=== PATIENT | female | born 1970 | race Caucasian/White ===

== ENCOUNTER 2020-12-12 19:47 | Emergency (ER) | payer BC ==
[~2020-12-12] VITALS: Ht 170.2 cm; Wt 123.8 kg
[~2020-12-12 19:47] MED LIST: ALBU90I INH; ALBU90OI6 INH; AZIT500 PO; CEFD300 PO; CHOL10002 PO; Duoneb 2.5-0.5 M3 ML INH; FLUSAL5005 IH; HYDCHL25 PO; LEVFLO500 PO; MONT10T PO; MULVITMIND PO; NAC600 MG PO; NICO21TP TOP; PRED10 PO; PRED20 PO; Prednisone20 MG PO; Robaxin500 MG PO; THEO100ERB PO; THEO300ERB PO
[2020-12-12 20:19] LABS: BASOPHILS ABSOLUTE AUTO 0.04 K/mm3 (0.00-0.23); BASOPHILS PERCENT AUTO 0 % (0-2); EOSINOPHILS PERCENT AUTO 3 % (0-6); Hematocrit 41.5 % (33.0-51.0); Hemoglobin 13.5 g/dL (11.5-16.0); IMMATURE GRAN ABSOLUTE AUTO 0.06 K/mm3 (0.00-0.10); IMMATURE GRAN PERCENT AUTO 1 % (0-1); LYMPHOCYTES ABSOLUTE AUTO 2.95 K/mm3 (0.84-5.20); LYMPHOCYTES PERCENT AUTO 30 % (21-46); MONOCYTES PERCENT AUTO 5 % (4-13); Mean Corpuscular HGB 27.2 pg (26.0-34.0); Mean Corpuscular HGB Conc 32.5 g/dL (31.5-36.5); Mean Corpuscular Volume 84 fL (80-100); Mean Platelet Volume 11.1 fL (9.1-12.4); NEUTROPHILS ABSOLUTE AUTO 6.02 K/mm3 (1.96-9.15); NEUTROPHILS PERCENT AUTO 61 % (41-73); Platelet Count 188 K/mm3 (150-400); RDW Coefficient Variation 15.2 % (11.7-14.2); Red Blood Cell Count 4.96 M/mm3 (3.80-5.20); White Blood Cell Count 9.87 K/mm3 (4.00-11.30)
[2020-12-12 20:44] LABS: Alanine Aminotransfer (ALT/SGP 17 U/L (12-78); Albumin, Blood 3.3 g/dL (3.4-5.0); Alk Phos 85 U/L (50-136); Anion Gap 4 mmol/L (6-16); Aspartate Aminotrans (AST/SGOT 10 U/L (12-37); Bilirubin, Total 0.4 mg/dL (0.1-1.0); Blood Urea Nitrogen 15 mg/dL (8-24); CO2, Blood 24 mmol/L (21-32); Calcium, Blood 9.3 mg/dL (8.5-10.1); Chloride, Blood 112 mmol/L (98-108); Globulin, Blood 3.4 g/dL (2.2-4.0); Glomerular Filtration Rate >60 (60-); Glucose, Blood 182 mg/dL (70-99); Potassium, Blood 3.9 mmol/L (3.5-5.5); Sodium, Blood 140 mmol/L (136-145); Total Protein, Blood 6.7 g/dL (6.4-8.2); Troponin I <0.015 ng/mL (0.000-0.040)
[2020-12-12] MEDS ORDERED: Prednisone50 MG PO (22:49)
[2020-12-12] MEDS ORDERED: Vibramycin100 MG PO (22:49)
== END 2020-12-12 22:57 | disposition home or self-care (01) ==
LOC: ER 19:47
PROVIDERS: Physician Assistant
DX: J45.901 Unspecified asthma with (acute) exacerbation (principal); E11.9 Type 2 diabetes mellitus without complications; J44.9 Chronic obstructive pulmonary disease, unspecified; Z88.0 Allergy status to penicillin; Z79.899 Other long term (current) drug therapy
CPT/HCPCS: 36415; 71046; 80053; 84484; 85025; 93005; 93010; 99284-25; J7512

== ENCOUNTER 2021-02-11 01:31 | Emergency (ER) | payer BC ==
[~2021-02-11] VITALS: Ht 170.2 cm; Wt 107.0 kg
[~2021-02-11 01:31] MED LIST changes: +Prednisone50 MG PO; +Vibramycin100 MG PO
[2021-02-11] MEDS ORDERED: ASPI325 PO (01:44)
[2021-02-11 02:04] LABS: BASOPHILS ABSOLUTE AUTO 0.06 K/mm3 (0.00-0.23); BASOPHILS PERCENT AUTO 1 % (0-2); EOSINOPHILS ABSOLUTE AUTO 0.42 K/mm3 (0.00-0.68); EOSINOPHILS PERCENT AUTO 4 % (0-6); Hematocrit 41.9 % (33.0-51.0); Hemoglobin 13.7 g/dL (11.5-16.0); IMMATURE GRAN ABSOLUTE AUTO 0.05 K/mm3 (0.00-0.10); IMMATURE GRAN PERCENT AUTO 1 % (0-1); LYMPHOCYTES ABSOLUTE AUTO 3.02 K/mm3 (0.84-5.20); LYMPHOCYTES PERCENT AUTO 31 % (21-46); MONOCYTES PERCENT AUTO 6 % (4-13); Mean Corpuscular HGB 27.3 pg (26.0-34.0); Mean Corpuscular HGB Conc 32.7 g/dL (31.5-36.5); Mean Corpuscular Volume 84 fL (80-100); Mean Platelet Volume 10.6 fL (9.1-12.4); NEUTROPHILS ABSOLUTE AUTO 5.61 K/mm3 (1.96-9.15); NEUTROPHILS PERCENT AUTO 58 % (41-73); Platelet Count 179 K/mm3 (150-400); RDW Coefficient Variation 15.1 % (11.7-14.2); Red Blood Cell Count 5.01 M/mm3 (3.80-5.20); White Blood Cell Count 9.76 K/mm3 (4.00-11.30)
[2021-02-11 02:28] LABS: Alanine Aminotransfer (ALT/SGP 20 U/L (12-78); Albumin, Blood 3.4 g/dL (3.4-5.0); Alk Phos 86 U/L (50-136); Anion Gap 4 mmol/L (6-16); Aspartate Aminotrans (AST/SGOT 10 U/L (12-37); Bilirubin, Total 0.4 mg/dL (0.1-1.0); Blood Urea Nitrogen 11 mg/dL (8-24); Bun/Creatinine Ratio 17.9 (12.0-20.0); CO2, Blood 25 mmol/L (21-32); Calcium, Blood 9.2 mg/dL (8.5-10.1); Chloride, Blood 109 mmol/L (98-108); Creatinine, Blood 0.62 mg/dL (0.40-1.00); Free Thyroxine 1.12 ng/dL (0.70-1.60); Globulin, Blood 3.4 g/dL (2.2-4.0); Glomerular Filtration Rate >60 (60-); Glucose, Blood 167 mg/dL (70-99); Potassium, Blood 3.7 mmol/L (3.5-5.5); Sodium, Blood 138 mmol/L (136-145); Total Protein, Blood 6.8 g/dL (6.4-8.2); Troponin I <0.015 ng/mL (0.000-0.040)
[2021-02-11] MEDS ORDERED: METO25ER PO (03:01)
[2021-02-11] MEDS ORDERED: XARELTO20 MG PO (03:01)
== END 2021-02-11 03:20 | disposition home or self-care (01) ==
LOC: ER 01:31
PROVIDERS: Emergency Medicine
DX: I48.0 Paroxysmal atrial fibrillation (principal); E11.9 Type 2 diabetes mellitus without complications; F17.200 Nicotine dependence, unspecified, uncomplicated; Z88.0 Allergy status to penicillin; Z88.1 Allergy status to other antibiotic agents; Z79.82 Long term (current) use of aspirin; Z79.899 Other long term (current) drug therapy
CPT/HCPCS: 36415; 71045; 80053; 84439; 84443; 84484; 85025; 93005; 93010; 99285-25

== ENCOUNTER 2023-01-09 01:13 | Emergency (ER) | payer OTHER ==
[~2023-01-09 01:13] MED LIST changes: +ALBU90OI INH; +ASPI325 PO; +DILT120 PO; +DILT30 PO; +ELIQUIS5 M2 PO; +ELIQUIS5 MG PO; +IPRAT-ALBUT 0.5-3 ML NEB; +METO25ER PO; +SYMBICORT 160-4.6 GM INH; +XARELTO20 MG PO
[2023-01-09 08:26] LABS: Albumin, Blood 3.8 g/dL (3.4-5.0); Albumin/Globulin Ratio 1.1 (0.8-1.8); Bilirubin, Total 0.5 mg/dL (0.1-1.0); Bun/Creatinine Ratio 17.2 (12.0-20.0); Calcium, Blood 9.7 mg/dL (8.5-10.1); Creatinine, Blood 0.64 mg/dL (0.40-1.00); Globulin, Blood 3.4 g/dL (2.2-4.0); Potassium, Blood 4.1 mmol/L (3.5-5.5); Total Protein, Blood 7.2 g/dL (6.4-8.2)
[2023-01-09 09:27] LABS: BASOPHILS ABSOLUTE AUTO 0.05 K/mm3 (0.00-0.23); BASOPHILS PERCENT AUTO 1 % (0-2); EOSINOPHILS ABSOLUTE AUTO 0.33 K/mm3 (0.00-0.68); EOSINOPHILS PERCENT AUTO 3 % (0-6); Hematocrit 46.5 % (33.0-51.0); Hemoglobin 15.2 g/dL (11.5-16.0); IMMATURE GRAN ABSOLUTE AUTO 0.04 K/mm3 (0.00-0.10); IMMATURE GRAN PERCENT AUTO 0 % (0-1); LYMPHOCYTES ABSOLUTE AUTO 2.94 K/mm3 (0.84-5.20); LYMPHOCYTES PERCENT AUTO 29 % (21-46); MONOCYTES ABSOLUTE AUTO 0.53 K/mm3 (0.16-1.47); MONOCYTES PERCENT AUTO 5 % (4-13); Mean Corpuscular HGB 27.3 pg (26.0-34.0); Mean Corpuscular HGB Conc 32.7 g/dL (31.5-36.5); Mean Corpuscular Volume 84 fL (80-100); Mean Platelet Volume 10.5 fL (9.1-12.4); NEUTROPHILS ABSOLUTE AUTO 6.32 K/mm3 (1.96-9.15); NEUTROPHILS PERCENT AUTO 62 % (41-73); Platelet Count 217 K/mm3 (150-400); RDW Coefficient Variation 15.2 % (11.7-14.2); RDW Standard Deviation 46.5 fL (35.1-46.3); Red Blood Cell Count 5.57 M/mm3 (3.80-5.20); White Blood Cell Count 10.21 K/mm3 (4.00-11.30)
== END 2023-01-09 06:25 | disposition home or self-care (01) ==
LOC: ER 01:13
PROVIDERS: Student in an Organized Health Care Education/Training Program
DX: I48.91 Unspecified atrial fibrillation (principal); R07.9 Chest pain, unspecified; F17.200 Nicotine dependence, unspecified, uncomplicated
CPT/HCPCS: 80053; 83735; 84484; 85025; 93005; 93010

== ENCOUNTER 2023-05-16 17:19 | Emergency (ER) | payer OTHER ==
[~2023-05-16] VITALS: Ht 170.2 cm; Wt 117.9 kg
[2023-05-16 17:48] LABS: BASOPHILS ABSOLUTE AUTO 0.05 K/mm3 (0.00-0.23); BASOPHILS PERCENT AUTO 0 % (0-2); EOSINOPHILS ABSOLUTE AUTO 0.28 K/mm3 (0.00-0.68); EOSINOPHILS PERCENT AUTO 2 % (0-6); Hematocrit 43.2 % (33.0-51.0); Hemoglobin 14.2 g/dL (11.5-16.0); IMMATURE GRAN PERCENT AUTO 1 % (0-1); LYMPHOCYTES ABSOLUTE AUTO 3.68 K/mm3 (0.84-5.20); LYMPHOCYTES PERCENT AUTO 31 % (21-46); MONOCYTES ABSOLUTE AUTO 0.58 K/mm3 (0.16-1.47); MONOCYTES PERCENT AUTO 5 % (4-13); Mean Corpuscular HGB Conc 32.9 g/dL (31.5-36.5); Mean Corpuscular Volume 85 fL (80-100); Mean Platelet Volume 10.1 fL (9.1-12.4); NEUTROPHILS ABSOLUTE AUTO 7.23 K/mm3 (1.96-9.15); NEUTROPHILS PERCENT AUTO 61 % (41-73); Platelet Count 174 K/mm3 (150-400); RDW Coefficient Variation 15.1 % (11.7-14.2); RDW Standard Deviation 46.7 fL (35.1-46.3); Red Blood Cell Count 5.07 M/mm3 (3.80-5.20); White Blood Cell Count 11.92 K/mm3 (4.00-11.30)
[2023-05-16] MEDS ORDERED: SYMBICORT 16010.2 GM INH (17:54)
[2023-05-16] MEDS ORDERED: LOSA25 (17:54)
[2023-05-16] MEDS ORDERED: METO50 (17:55)
[2023-05-16] MEDS ORDERED: BREYNA 160-4.10.3 GM INH (17:55)
[2023-05-16] MEDS ORDERED: LISI5 PO (17:55)
[2023-05-16 18:20] LABS: Albumin, Blood 3.3 g/dL (3.4-5.0); Bilirubin, Total 0.5 mg/dL (0.1-1.0); Bun/Creatinine Ratio 19.7 (12.0-20.0); Calcium, Blood 9.4 mg/dL (8.5-10.1); Creatinine, Blood 0.76 mg/dL (0.40-1.00); Globulin, Blood 3.3 g/dL (2.2-4.0); Potassium, Blood 4.2 mmol/L (3.5-5.5); Total Protein, Blood 6.6 g/dL (6.4-8.2)
[2023-05-16 18:50] LABS: Source, Urine Clean Catch
[2023-05-16 19:07] LABS: Appearance, Urine Clear (Clear); Bilirubin, Urine Neg (Neg); Blood, Urine 2+ (Neg); Color, Urine Yellow (P-Yellow); Glucose Qualitative, Urine Neg (Neg); Ketones, Urine Neg (Neg); Leukocyte Esterase, Urine 2+ (Neg); Nitrite, Urine Neg (Neg); Protein, Urine Neg (Neg); Urobilinogen, Urine NORM (Normal); pH, Urine 6.5 (5.0-8.0)
[2023-05-16 19:16] LABS: Bacteria Few /hpf; Red Blood Cells, Urine 0-2 /hpf (0-2); Squamous Epithelial Cells Few /hpf (Few)
[2023-05-16 19:58] VITALS: BP 125/70
== END 2023-05-16 20:39 | disposition home or self-care (01) ==
LOC: ER 17:19
PROVIDERS: Emergency Medicine; Student in an Organized Health Care Education/Training Program
DX: I48.91 Unspecified atrial fibrillation (principal); E11.9 Type 2 diabetes mellitus without complications; F17.200 Nicotine dependence, unspecified, uncomplicated; J44.9 Chronic obstructive pulmonary disease, unspecified
CPT/HCPCS: 71260; 80053; 81001; 83880; 84484; 85025; 93005; 93010; 99285-25; Q9967

== ENCOUNTER 2023-06-24 21:26 | Emergency (ER) | payer OTHER ==
[~2023-06-24] VITALS: Ht 170.2 cm; Wt 117.9 kg
[~2023-06-24 21:26] MED LIST changes: +BREYNA 160-4.10.3 GM INH; +LISI5 PO; +LOSA25; +METO50; +SYMBICORT 16010.2 GM INH
[2023-06-24 21:55] LABS: Source, Urine Clean Catch
[2023-06-24 21:56] LABS: BASOPHILS ABSOLUTE AUTO 0.04 K/mm3 (0.00-0.23); BASOPHILS PERCENT AUTO 0 % (0-2); EOSINOPHILS ABSOLUTE AUTO 0.04 K/mm3 (0.00-0.68); EOSINOPHILS PERCENT AUTO 0 % (0-6); Hematocrit 42.5 % (33.0-51.0); IMMATURE GRAN ABSOLUTE AUTO 0.28 K/mm3 (0.00-0.10); IMMATURE GRAN PERCENT AUTO 2 % (0-1); LYMPHOCYTES PERCENT AUTO 16 % (21-46); MONOCYTES ABSOLUTE AUTO 0.65 K/mm3 (0.16-1.47); MONOCYTES PERCENT AUTO 5 % (4-13); Mean Corpuscular HGB Conc 32.9 g/dL (31.5-36.5); Mean Corpuscular Volume 85 fL (80-100); Mean Platelet Volume 10.6 fL (9.1-12.4); NEUTROPHILS ABSOLUTE AUTO 10.45 K/mm3 (1.96-9.15); NEUTROPHILS PERCENT AUTO 77 % (41-73); Platelet Count 222 K/mm3 (150-400); RDW Coefficient Variation 15.9 % (11.7-14.2); RDW Standard Deviation 49.1 fL (35.1-46.3); White Blood Cell Count 13.66 K/mm3 (4.00-11.30)
[2023-06-24 21:57] LABS: Bilirubin, Urine Neg (Neg); Blood, Urine 2+ (Neg); Glucose Qualitative, Urine Neg (Neg); Ketones, Urine Neg (Neg); Leukocyte Esterase, Urine 1+ (Neg); Nitrite, Urine Neg (Neg); Protein, Urine Neg (Neg); Urobilinogen, Urine NORM (Normal)
[2023-06-24 21:59] LABS: Appearance, Urine Clear (Clear); Color, Urine Yellow (P-Yellow)
[2023-06-24 22:06] LABS: Bacteria Few /hpf; Red Blood Cells, Urine 0-2 /hpf (0-2); Squamous Epithelial Cells Not Seen /hpf (Few)
[2023-06-24 22:14] LABS: Albumin, Blood 3.6 g/dL (3.4-5.0); Bilirubin, Total 0.5 mg/dL (0.1-1.0); Bun/Creatinine Ratio 34.5 (12.0-20.0); Calcium, Blood 9.6 mg/dL (8.5-10.1); Creatinine, Blood 0.67 mg/dL (0.40-1.00); Globulin, Blood 3.7 g/dL (2.2-4.0); Potassium, Blood 4.3 mmol/L (3.5-5.5); Total Protein, Blood 7.3 g/dL (6.4-8.2)
[2023-06-24 23:34] LABS: Magnesium, Blood 2.3 mg/dL (1.6-2.4); Phosphorus, Blood 2.8 mg/dL (2.5-4.9)
[2023-06-25 01:15] VITALS: BP 124/90
[2023-06-25] MEDS ORDERED: CEPH500 PO (01:17)
== END 2023-06-25 01:24 | disposition home or self-care (01) ==
LOC: ER 21:26
PROVIDERS: Emergency Medicine
DX: R07.89 Other chest pain (principal); N39.0 Urinary tract infection, site not specified; I89.0 Lymphedema, not elsewhere classified; E66.9 Obesity, unspecified; F17.200 Nicotine dependence, unspecified, uncomplicated; J44.9 Chronic obstructive pulmonary disease, unspecified; E11.9 Type 2 diabetes mellitus without complications; I48.91 Unspecified atrial fibrillation
CPT/HCPCS: 71046; 80053; 81001; 82947; 83735; 83880; 84100; 84484; 85025; 85379; 87086; 93005; 93010; 96365; 99285-25; J0696

== ENCOUNTER 2023-09-13 01:27 | Inpatient (IN) | payer OTHER ==
[~2023-09-13] VITALS: Ht 170.2 cm; Wt 115.3 kg
[~2023-09-13 01:27] MED LIST changes: +CEPH500 PO
[2023-09-13 02:39] LABS: BASOPHILS ABSOLUTE AUTO 0.06 K/mm3 (0.00-0.23); BASOPHILS PERCENT AUTO 0 % (0-2); EOSINOPHILS ABSOLUTE AUTO 0.03 K/mm3 (0.00-0.68); EOSINOPHILS PERCENT AUTO 0 % (0-6); Hematocrit 45.6 % (33.0-51.0); Hemoglobin 14.9 g/dL (11.5-16.0); IMMATURE GRAN ABSOLUTE AUTO 0.23 K/mm3 (0.00-0.10); IMMATURE GRAN PERCENT AUTO 1 % (0-1); LYMPHOCYTES ABSOLUTE AUTO 1.66 K/mm3 (0.84-5.20); LYMPHOCYTES PERCENT AUTO 9 % (21-46); MONOCYTES ABSOLUTE AUTO 1.02 K/mm3 (0.16-1.47); MONOCYTES PERCENT AUTO 5 % (4-13); Mean Corpuscular HGB 28.2 pg (26.0-34.0); Mean Corpuscular HGB Conc 32.7 g/dL (31.5-36.5); Mean Corpuscular Volume 86 fL (80-100); Mean Platelet Volume 11.2 fL (9.1-12.4); NEUTROPHILS ABSOLUTE AUTO 16.12 K/mm3 (1.96-9.15); NEUTROPHILS PERCENT AUTO 84 % (41-73); Platelet Count 190 K/mm3 (150-400); RDW Coefficient Variation 15.8 % (11.7-14.2); Red Blood Cell Count 5.29 M/mm3 (3.80-5.20); White Blood Cell Count 19.12 K/mm3 (4.00-11.30)
[2023-09-13 03:17] LABS: Albumin, Blood 3.7 g/dL (3.4-5.0); Albumin/Globulin Ratio 1.1 (0.8-1.8); Bilirubin, Total 0.7 mg/dL (0.1-1.0); Bun/Creatinine Ratio 22.6 (12.0-20.0); Calcium, Blood 9.5 mg/dL (8.5-10.1); Creatinine, Blood 0.53 mg/dL (0.40-1.00); Globulin, Blood 3.5 g/dL (2.2-4.0); Phosphorus, Blood 2.1 mg/dL (2.5-4.9); Potassium, Blood 3.7 mmol/L (3.5-5.5); Thyroid Stimulating Hormone 0.712 uIU/mL (0.360-4.800); Total Protein, Blood 7.2 g/dL (6.4-8.2)
[2023-09-13 04:15] LABS: Influenza A, PCR NEGATIVE (NEGATIVE); Influenza B, PCR NEGATIVE (NEGATIVE); Resp Syncytial Virus, PCR NEGATIVE (NEGATIVE); SARS-Cov-2 (COVID-19) PCR, MMC NEGATIVE (NEGATIVE)
[2023-09-13 05:27] LABS: Base Excess Venous 2.2 mmol/L; Bicarbonate Venous 26.2 mmol/L (24.0-30.0); pH Blood Venous 7.44 (7.34-7.37)
[2023-09-13] MEDS ORDERED: LOSARTAN-HCTZ1 EAC5 PO (06:40)
[2023-09-13] MEDS ORDERED: METOPROLOL SUCC25 MG PO (06:41)
[2023-09-13 14:06] VITALS: BP 125/98
--- NOTE | 2023-09-13 14:43 | NUR ---
ADMISSION: PT ARRIVED TO PCU 20 @1330 VIA GURNEY. PT ALERT AND ORIENTED X3, ABLE TO TELL THIS RN NAME, , AND LOCATION. STRENGTH EQUAL BILATERALLY. PT ANXIOUS, STATING "I CANT BREATHE." ATTEMPTING TO PULL AT LINES AND OXYGEN TUBING. BED ALARM ON FOR SAFETY. MEEDS FREQUENT REDIRECTION. BP STABLE, HR AFIB 140'S, DILT GTT @15MG/HR. SPO2 >96% ON 6L NC, PT RA AT BASELINE. LUNG SOUNDS COARSE WITH WHEEZES THROUGHOUT. RESP 22-24. AFEBRILE. ABD SOFT, NON TENDER, BOWEL SOUNDS +. PULSES STRONG AND EQUAL THROUGHOUT. +2 EDEMA NOTED IN BLE. MD NOTIFIED OF PT HR AND ANXIETY. BED IN LOW, CALL LIGHT IN REACH.
[2023-09-13 15:06] VITALS: BP 110/74
--- NOTE | 2023-09-13 16:01 | NUR ---
UPDATE: PT CONVERTED TO SINUS RHYTHM @1601.
--- NOTE | 2023-09-13 17:12 | NUR ---
SHIFT SUMMARY: NO ACUTE CHANGES SINCE ADMISSION. PT REMAINS ANXIOUS, MEDICATED PER EMAR. CONTINUING TO REFUSE BIPAP. HR REMAINS SR 80'S. VSS. BED IN LOW, CALL LIGHT IN REACH, WILL REPORT TO ONCOMING RN.
[2023-09-13 19:22] VITALS: BP 142/82
[2023-09-13 23:38] VITALS: BP 144/95
[2023-09-14 04:12] VITALS: BP 126/78
[2023-09-14 06:22] LABS: BASOPHILS ABSOLUTE AUTO 0.04 K/mm3 (0.00-0.23); BASOPHILS PERCENT AUTO 0 % (0-2); EOSINOPHILS PERCENT AUTO 0 % (0-6); Hematocrit 47.5 % (33.0-51.0); Hemoglobin 15.5 g/dL (11.5-16.0); IMMATURE GRAN ABSOLUTE AUTO 0.17 K/mm3 (0.00-0.10); IMMATURE GRAN PERCENT AUTO 1 % (0-1); LYMPHOCYTES ABSOLUTE AUTO 1.06 K/mm3 (0.84-5.20); LYMPHOCYTES PERCENT AUTO 9 % (21-46); MONOCYTES ABSOLUTE AUTO 0.18 K/mm3 (0.16-1.47); MONOCYTES PERCENT AUTO 2 % (4-13); Mean Corpuscular HGB 28.4 pg (26.0-34.0); Mean Corpuscular HGB Conc 32.6 g/dL (31.5-36.5); Mean Corpuscular Volume 87 fL (80-100); NEUTROPHILS ABSOLUTE AUTO 10.36 K/mm3 (1.96-9.15); NEUTROPHILS PERCENT AUTO 88 % (41-73); Platelet Count 192 K/mm3 (150-400); RDW Coefficient Variation 15.7 % (11.7-14.2); RDW Standard Deviation 49.9 fL (35.1-46.3); Red Blood Cell Count 5.46 M/mm3 (3.80-5.20); White Blood Cell Count 11.81 K/mm3 (4.00-11.30)
[2023-09-14 06:37] LABS: Albumin, Blood 3.4 g/dL (3.4-5.0); Albumin/Globulin Ratio 0.8 (0.8-1.8); Bilirubin, Total 0.9 mg/dL (0.1-1.0); Bun/Creatinine Ratio 32.3 (12.0-20.0); Creatinine, Blood 0.59 mg/dL (0.40-1.00); Magnesium, Blood 2.7 mg/dL (1.6-2.4); Potassium, Blood 4.6 mmol/L (3.5-5.5); Total Protein, Blood 7.4 g/dL (6.4-8.2)
--- NOTE | 2023-09-14 07:28 | NUR ---
SHIFT SUMMARY NO ACUTE EVENTS T/O NIGHT. RESIDENT CALLED IN PM D/T CBG OF 418. ORDER TO INCREASE HUMALOG TO HSS. VSS. SR. ON 5L NC. PT A/O X 3. MORE AWAKE THIS AM. PT IMPULSIVE AT TIMES AND BED ALARM IN PLACE. USES BSC WITH ONE PERSON ASSIST. BEDSIDE REPORT GIVEN. CALL LIGHT IN REACH.
[2023-09-14 08:10] VITALS: BP 130/79
[2023-09-14 12:43] VITALS: BP 132/80
[2023-09-14 16:12] VITALS: BP 119/67
--- NOTE | 2023-09-14 16:38 | NUR ---
UPDATE PT BLOOD SUGARS GRADUALLY INCREASED THROUGHOUT SHIFT, COVERAGE WITH HUMALOG HIGH SLIDING SCALE PER ORDERS. SUGARS CONTINUED TO INCREASE, MD MADE AWARE. PT TO RECIEVE GLARGINE THIS EVENING, MD INSTRUCTED RN TO KEEP REGIMEN IS FOR NOW AND PT WILL RECIEVE FIRST DOSE OF LONG ACTING. PT TO BE UPDATED. PT EXPRESSED CONCERN ABOUT POTASSIUM LEVELS BEING LOW DUE TO RECIEVING LASIX. PT MADE AWARE OF POTASSIUM LEVEL FROM MORNING LABS, PT COMFORTABLE WITH THE LEVEL, SEE CHART.
--- NOTE | 2023-09-14 18:55 | NUR ---
SIFT SUMMARY PT A/OX4 AND COOPERATIVE OF CARE. PT ABLE TO EXPRESS NEEDS AND CALLS APPROPIATELY. PT EXPRESSED SOME CONCERN OF BLOOD SUGAR LEVELS INCREASING, BELIEVES HER PREVIOUS BOUT FOR COVID CAUSED HER BLOODSUGAR TO RISE. MD AWARE OF BLOOD SUGAR LEVELS. PT REPORTED SOB [place] TIMES DURING SHIFT AND REQUESTED MULTIPKLE BREATHING TX'S. PT REPORTS LITTLE RELIEF. OTHER VSS THROUGHOUT SHIFT. PT O2 TITRATED TO 3L NC, TOLERATING WELL. PT INDEPENDENT IN ROOM. PT UPPER DENTURES REPORTED MISSING DURING MORNING ROUNDING, DENTURED FOUND IN ED AND RETURNED TO PT. PT ANXIOUS ABOUT MEDS AND LAB LEVELS.
[2023-09-14 20:13] VITALS: BP 136/72
[2023-09-14 22:44] VITALS: BP 135/83
[2023-09-15 03:04] VITALS: BP 131/74
[2023-09-15 04:16] LABS: Base Excess Venous -1.6 mmol/L; Bicarbonate Venous 22.4 mmol/L (24.0-30.0); PCO2 Venous 40.5 mmHg (38-42); pH Blood Venous 7.38 (7.34-7.37)
[2023-09-15 04:20] LABS: BASOPHILS ABSOLUTE AUTO 0.04 K/mm3 (0.00-0.23); BASOPHILS PERCENT AUTO 0 % (0-2); EOSINOPHILS PERCENT AUTO 0 % (0-6); Hematocrit 45.4 % (33.0-51.0); Hemoglobin 14.5 g/dL (11.5-16.0); IMMATURE GRAN ABSOLUTE AUTO 0.15 K/mm3 (0.00-0.10); IMMATURE GRAN PERCENT AUTO 1 % (0-1); LYMPHOCYTES ABSOLUTE AUTO 0.64 K/mm3 (0.84-5.20); LYMPHOCYTES PERCENT AUTO 4 % (21-46); MONOCYTES ABSOLUTE AUTO 0.55 K/mm3 (0.16-1.47); MONOCYTES PERCENT AUTO 3 % (4-13); Mean Corpuscular HGB 28.2 pg (26.0-34.0); Mean Corpuscular HGB Conc 31.9 g/dL (31.5-36.5); Mean Corpuscular Volume 88 fL (80-100); Mean Platelet Volume 11.3 fL (9.1-12.4); NEUTROPHILS PERCENT AUTO 93 % (41-73); Platelet Count 199 K/mm3 (150-400); RDW Coefficient Variation 15.4 % (11.7-14.2); RDW Standard Deviation 50.1 fL (35.1-46.3); Red Blood Cell Count 5.14 M/mm3 (3.80-5.20); White Blood Cell Count 18.08 K/mm3 (4.00-11.30)
[2023-09-15 04:42] LABS: Bun/Creatinine Ratio 40.2 (12.0-20.0); Calcium, Blood 9.9 mg/dL (8.5-10.1); Creatinine, Blood 0.65 mg/dL (0.40-1.00); Potassium, Blood 4.3 mmol/L (3.5-5.5)
--- NOTE | 2023-09-15 06:17 | NUR ---
MARKETING BUDGET ANALYST SUMMARY PT HAS REMAINED ALERT AND ORIENTED THIS SHIFT COMMUNICATING APPROPRIATELY W STAFF. PT MAINTAINED SPO2 >90% ON 4L NC BUT REQUIRED MULTIPLE BREATHING TREATMENTS FOR SOB/WHEEZING THIS SHIFT. PT DID BECOME ORTHOPNEIC WHILE SLEEPING FLAT THIS SHIFT AWAKING VERY SOB AND PANICKED. PT'S MONITOR SHOWING SR 70'S-80'S THIS SHIFT. PT'S GLUCOSE RISING THIS SHIFT DESPITE 2100 INSULIN COVERAGE W HUMALOG AND SEMGLEE SO PROVIDER CONTACTED THIS AM WHO GAVE ORDER FOR ADDITIONAL 10 UNITS HUMALOG. WILL REPORT TO ONCOMING RN.
[2023-09-15 07:39] VITALS: BP 115/62
[2023-09-15 15:52] VITALS: BP 137/63
[2023-09-15 16:44] LABS: Influenza A Negative (NEGATIVE); Influenza B Negative (NEGATIVE)
[2023-09-15 16:50] LABS: SARS-Cov-2 (COVID-19) PCR, MMC NEGATIVE (NEGATIVE)
--- NOTE | 2023-09-15 17:03 | NUR ---
Shift Summary Pt alert, oriented x4; anxious but cooperative with care. Pt resting on side of bed for majority of shift, pt up with sba to bathroom. Pt reports significant sob with ambulation; on 4-6l while up; spo2 >90% on 4l o2 via nc at rest; pt requiring multiple breathing treatment t/o shifts; pt reportsing blood in sputums, states has been happening since admission MD aware, placed new order. Pt denies pain, chest pain/pressure, nausea, dizziness and lightheadedness and numb/tingling. Tele sinus 80's, bp stable. Edema noted to ble +2 pitting; pt states its better then when she was admitted. Abd soft, nontneder +bt t/o. Other vss. No other acute changes noted. Will continue to monitor.
[2023-09-15 17:11] VITALS: BP 164/71
--- NOTE | 2023-09-15 18:48 | NUR ---
RN TO RN REPORT RECIEVED FROM ALLISON BECKHAM AT PCU. PATIENT TRANSFERED TO UNIT AT 1705. WHEEZING AND SHORTNESS OF BREATH NOTED TO ALL LOBES. SHE DECLINES BREATHING TREATMENT AT THIS TIME. RECOVERED QUICKLY TO 94% ON 4LPM.
[2023-09-15 20:42] VITALS: BP 123/54
--- NOTE | 2023-09-15 22:18 | NUR ---
PT HS BLOOD SUGAR WAS 365, DR COTO CALLED AND INFORMED. 6 UNITS OF HUMALOG AND 30 UNITS OF GLARGINE ADMINISTERED. PT COMPLAINS OF A COUGH, CODEINE COUGH SYRUP ORDERED AND ADMINISTERED.
--- NOTE | 2023-09-16 04:17 | NUR ---
SENIOR SOUS CHEF SUMMARY PT A&OX4 AND ANSWERS QUESTIONS APPROPRIATELY. PT REQUIRED MULTIPLE BREATHING TREATMENTS THROUGHOUT THE NIGHT DUE TO TACHYPNEA AND SOB. PT O2 SATURATION LEVELS DESAT DURING AMBULATION, O2 INCREASED DURING ACTIVITY. PT O2 SATS RETURNED TO ABOVE 90% AFTER RETURNING TO REST. PT RECEIVED CODEINE COUGH SYRUP AROUND 2200. PT REPORTED 2400 ML DURING VOIDING DUE TO PT EMPTYING URINE INTO TOILET FROM HAT AFTER VOIDING. PT REMAINING VSS THROUGHOUT SHIFT. NO ACUTE EVENTS AT THIS TIME. PT LEFT IN A POSITION OF SAFETY WITH PROPER FALL PRECAUTIONS IN PLACE AND CALL LIGHT IN REACH.
[2023-09-16 05:34] VITALS: BP 138/69
[2023-09-16 08:17] VITALS: BP 144/73
[2023-09-16 16:04] VITALS: BP 129/71
--- NOTE | 2023-09-16 19:15 | NUR ---
SHIFT SUMMARY; PATIENT HAS NO ACUTE CHANGES IN CONDITION NOTED. SHE DOES EAT FAST FOOD AND ICE CREAM FROM HOME DURING DAY. ATTEMPTS TO EDUCATE HER ON NECESSITTY OF CHANGING DIET ARE MET WITH MUCH RESISTANCE. PATIENT OPENLY EATING CANDY AND CARBS THROUGHOUT DAY. SPOUSE COMES TO ROOM DURING DAY TO RESUPPLY PATIENTS FOOD.
[2023-09-16 21:10] VITALS: BP 142/66
--- NOTE | 2023-09-17 04:15 | NUR ---
SHIFT SUMMARY PT A&OX4 AND ANSWERS QUESTIONS APPROPRIATELY. PT REQUESTED SOMETHING TO AID WITH SLEEP, DR ORDERED MELATONIN 5MG FOR SLEEP. PT ON CONTINUOUS TELEMETRY AND STARTED THE SHIFT IN NSR. AT 22:30 PT CONVERTED INTO AFIB IN THE 130S. ASSESSMENT SHOWED PT WAS IN NO DISTRESS, HAD NO COMPLAINTS OF CHEST PAIN, DIZZINESS, OR DIAPHORESIS. PT VERBALIZED FEELING HER HEART BEATING FAST BUT NO PAIN. PT CONVERTED BACK INTO NSR AT AROUND 23:27 AND REMAINED FOR THE REST OF THE SHIFT. PT IS ON 4L OF O2 AND MAINTAINING O2 SATS IN THE 90S. PT SLEPT THROUGH MOST OF SHIFT, RESPIRATIONS WERE UNLABORED AND EVEN. VSS. NO ACUTE EVENTS AT THIS TIME. PT LEFT IN A POSITION OF SAFETY WITH PROPER FALL PRECAUTIONS IN PLACE AND CALL LIGHT WITHIN REACH.
[2023-09-17 04:28] VITALS: BP 129/69
[2023-09-17 04:59] LABS: BASOPHILS ABSOLUTE AUTO 0.02 K/mm3 (0.00-0.23); BASOPHILS PERCENT AUTO 0 % (0-2); EOSINOPHILS PERCENT AUTO 0 % (0-6); Hematocrit 43.8 % (33.0-51.0); Hemoglobin 14.2 g/dL (11.5-16.0); IMMATURE GRAN ABSOLUTE AUTO 0.19 K/mm3 (0.00-0.10); IMMATURE GRAN PERCENT AUTO 2 % (0-1); LYMPHOCYTES ABSOLUTE AUTO 0.99 K/mm3 (0.84-5.20); LYMPHOCYTES PERCENT AUTO 9 % (21-46); MONOCYTES ABSOLUTE AUTO 0.55 K/mm3 (0.16-1.47); MONOCYTES PERCENT AUTO 5 % (4-13); Mean Corpuscular HGB 28.4 pg (26.0-34.0); Mean Corpuscular HGB Conc 32.4 g/dL (31.5-36.5); Mean Corpuscular Volume 88 fL (80-100); Mean Platelet Volume 11.1 fL (9.1-12.4); NEUTROPHILS ABSOLUTE AUTO 9.72 K/mm3 (1.96-9.15); NEUTROPHILS PERCENT AUTO 85 % (41-73); Platelet Count 192 K/mm3 (150-400); RDW Coefficient Variation 15.4 % (11.7-14.2); RDW Standard Deviation 49.2 fL (35.1-46.3); White Blood Cell Count 11.47 K/mm3 (4.00-11.30)
[2023-09-17 05:15] LABS: Bun/Creatinine Ratio 47.8 (12.0-20.0); Calcium, Blood 9.8 mg/dL (8.5-10.1); Creatinine, Blood 0.61 mg/dL (0.40-1.00); Potassium, Blood 4.4 mmol/L (3.5-5.5)
[2023-09-17] MEDS ORDERED: ALBU2.5V5 INH (12:52)
[2023-09-17] MEDS ORDERED: ELIQUIS5 M2 PO (12:52)
[2023-09-17] MEDS ORDERED: JARDIANCE25 MG PO (12:53)
[2023-09-17] MEDS ORDERED: DILTIAZEM 24HR240 M4 PO (12:53)
[2023-09-17] MEDS ORDERED: BASAGLAR K100 UNIT/6 SC (12:54)
[2023-09-17] MEDS ORDERED: IPRAT-ALBUT 0.5-3 ML INH (12:54)
[2023-09-17] MEDS ORDERED: FURO40 PO (12:56)
[2023-09-17] MEDS ORDERED: SPIR25 PO (12:56)
[2023-09-17] MEDS ORDERED: PRED20 PO (12:56)
[2023-09-17 15:51] VITALS: BP 146/85
[2023-09-17] MEDS ORDERED: ACETADOTE200 MG/1 M INH (16:57)
--- NOTE | 2023-09-17 18:31 | NUR ---
DISCHARGE SUMMARY: PT DISCHARGED HOME WITH O2. O2 WAS DELIVERED FROM [facility]. THE BLACK CARRY BAG SMELLED OF URINE AND HAD ANIMAL HAIR IN THE BAG. I OFFERED TO CALL [facility] AND HAVE THEM DELIVER A NEW O2 TANK AND BAG BUT PT REFUSED STATING SHE WOULD CALL IN THE MORNING AND ADDRESS WITH THEM PERSONALLY. O2 TANK WAS STERILIZED AND PROVIDED A BAG TO CARRY TANK IN. PT STATED SHE WAS SATISFIED WITH PLAN. PT EDUCATED ON DISCHARGE PLAN AND INSTRUCTIONS. PROVIDED WORK NOTE PER HER REQUEST.PT ESCORTED TO POV VIA WC BY GOYO COOPER. PT ABLE TO SELF TX TO POV.
== END 2023-09-17 17:35 | disposition home or self-care (01) | DRG 291 ==
LOC: ER 01:27 → ERHOLD 05:02 → MEDS 05:02 → PCU 13:57 → MEDS 09-15 17:07
PROVIDERS: Emergency Medicine; Internal Medicine; ADMIT Student in an Organized Health Care Education/Training Program
DX: I11.0 Hypertensive heart disease with heart failure (principal); I50.33 Acute on chronic diastolic (congestive) heart failure; J96.01 Acute respiratory failure with hypoxia; J44.1 Chronic obstructive pulmonary disease with (acute) exacerbation; Z68.41 Body mass index [BMI] 40.0-44.9, adult; I48.0 Paroxysmal atrial fibrillation; E11.9 Type 2 diabetes mellitus without complications; E66.01 Morbid (severe) obesity due to excess calories; F17.210 Nicotine dependence, cigarettes, uncomplicated; Z99.81 Dependence on supplemental oxygen; Z11.52 Encounter for screening for COVID-19
CPT/HCPCS: 0241U; 36415; 71045; 80048; 80053; 82803; 82947; 83036; 83605; 83735; 83880; 84100; 84145; 84443; 84484; 85025; 85379; 87040; 87804; 87807; 93005; 93010; 93306; 94640; 94660; 94664; 94760; 94761; 94762; 96365; 96366; 96367; 96375; 96376; 99285-25; A9270; J0456; J0696; J1815; J1940; J2060; J2930; J7050; J7512; U0002